=== PATIENT | male | born 1995 | race American Indian/Alaskan Native ===

== ENCOUNTER 2018-10-27 12:14 | Emergency (ER) | payer OTHER ==
[2018-10-27] MEDS ORDERED: NACL 0.9% 1000 ML 1,000 ML ONE (12:52)
[2018-10-27] MEDS ORDERED: NACL 0.9% 1000 ML 1,000 ML IV ONE ×2 (13:51→15:21)
--- NOTE | 2018-10-27 13:54 | Emergency Department Report ---
HPI - General Chief Complaint: Dizziness Time Seen by Provider: 10/27/18 13:40 - HPI HPI: Room 24 The patient is a 23-year-old male presenting with chief complaint of dizziness and weakness. Patient states he was performing an obstacle course during try outs when he began to feel weak and experienced whole body cramping. Patient states his symptoms began approximate 7-8 minutes into the obstacle course. Patient also complained of feeling dizzy. Patient denied ever having chest pain or shortness of breath. Patient denies ever losing consciousness. Patient now complains of feeling tired Location: [See above] Duration: [See above] Quality: Dizziness Severity: Moderate Modifying factors: [see above] Context: [see above] Mode of transportation: [not driving] ED Past Medical Hx - Past Medical History Previous Medical History?: No - Surgical History Past Surgical History?: No - Family History Family history: no significant - Social History Smoking Status: Never Smoker Substance Use Type: None (denies illicit drug use), Alcohol (occasional) ED Review of Systems ROS: Stated complaint: DIZZY/HYPOTENSION Other details as noted in HPI Constitutional: weakness Eyes: denies: eye pain ENT: denies: throat pain Respiratory: no symptoms reported Cardiovascular: denies: chest pain Endocrine: no symptoms reported Gastrointestinal: denies: abdominal pain Genitourinary: denies: dysuria Musculoskeletal: myalgia Neurological: other (dizziness) Physical Exam - Physical Exam Vital Signs: Vital Signs 10/27/18 12:38 Temperature 98 F Pulse Rate 92 H Respiratory 16 Rate Blood Pressure 124/67 [Left] O2 Sat by Pulse 88 Oximetry Physical Exam: GENERAL: The patient is well-developed well-nourished male lying on stretcher not appearing to be in acute distress. [] HEENT: Normocephalic. Atraumatic. Extraocular motions are intact. Patient has moist mucous membranes. NECK: Supple. Trachea midline CHEST/LUNGS: Clear to auscultation. There is no respiratory distress noted. HEART/CARDIOVASCULAR: Regular. There is no tachycardia. There is no gallop rub or murmur. ABDOMEN: Abdomen is soft, nontender. Patient has normal bowel sounds. There is no abdominal distention. SKIN: There is no rash. There is no edema. There is no diaphoresis. NEURO: The patient is awake, alert, and oriented. The patient is cooperative. The patient has no focal neurologic deficits. The patient has normal speech. Cranial nerves II through XII grossly intact, no drift MUSCULOSKELETAL: There is no evidence of acute injury. ED Course Vital Signs 10/27/18 12:38 Temperature 98 F Pulse Rate 92 H Respiratory 16 Rate Blood Pressure 124/67 [Left] O2 Sat by Pulse 88 Oximetry ED Medical Decision Making - Lab Data Result diagrams: 10/27/18 13:53 10/27/18 13:53 Laboratory Tests 10/27/18 10/27/18 10/27/18 12:59 13:53 13:53 WBC 13.5 H RBC 4.33 Hgb 14.3 Hct 42.8 MCV 99 H MCH 33 H MCHC 34 RDW 16.6 H Plt Count 193 Add Manual Diff Complete Total Counted 100 Seg Neuts % (Manual) 86.0 H Band Neutrophils % 2.0 Lymphocytes % (Manual) 6.0 L Reactive Lymphs % (Man) 0 Monocytes % (Manual) 4.0 Eosinophils % (Manual) 0 Basophils % (Manual) 0 Metamyelocytes % 2.0 Myelocytes % 0 Promyelocytes % 0 Blast Cells % 0 Nucleated RBC % 1.0 H Seg Neutrophils # Man 11.6 H Band Neutrophils # 0.3 Lymphocytes # (Manual) 0.8 L Abs React Lymphs (Man) 0.0 Monocytes # (Manual) 0.5 Eosinophils # (Manual) 0.0 Basophils # (Manual) 0.0 Metamyelocytes # 0.3 Myelocytes # 0.0 Promyelocytes # 0.0 Blast Cells # 0.0 WBC Morphology Not Reportable Hypersegmented Neuts Not Reportable Hyposegmented Neuts Not Reportable Hypogranular Neuts Not Reportable Smudge Cells Not Reportable Toxic Granulation Not Reportable Toxic Vacuolation Not Reportable Dohle Bodies Not Reportable Pelger-Huet Anomaly Not Reportable Brian Rods Not Reportable Platelet Estimate Consistent w auto Clumped Platelets Not Reportable Plt Clumps, EDTA Not Reportable Large Platelets Rare Giant Platelets Not Reportable Platelet Satelliting Not Reportable Plt Morphology Comment Not Reportable RBC Morphology Not Reportable Dimorphic RBCs Not Reportable Polychromasia Not Reportable Hypochromasia Not Reportable Poikilocytosis Not Reportable Anisocytosis 1+ Microcytosis Not Reportable Macrocytosis Not Reportable Spherocytes Not Reportable Pappenheimer Bodies Not Reportable Sickle Cells Not Reportable Target Cells Not Reportable Tear Drop Cells Rare Ovalocytes Not Reportable Helmet Cells Not Reportable Samson-Middleberg Bodies Not Reportable Longs Rings Not Reportable Hardy Cells Not Reportable Bite Cells Not Reportable Crenated Cell Not Reportable Elliptocytes Not Reportable Acanthocytes (Spur) Not Reportable Rouleaux Not Reportable Hemoglobin C Crystals Not Reportable Schistocytes Not Reportable Malaria parasites Not Reportable Shad Bodies Not Reportable Hem Pathologist Commnt No D-Dimer POC ABG pH POC ABG pCO2 POC ABG pO2 POC ABG HCO3 POC ABG Total CO2 POC ABG O2 Sat POC ABG Base Excess FiO2 Sodium Potassium Chloride Carbon Dioxide Anion Gap BUN Creatinine Estimated GFR BUN/Creatinine Ratio Glucose POC Glucose 71 Calcium Total Bilirubin AST ALT Alkaline Phosphatase Total Creatine Kinase 1043 H CK-MB (CK-2) 19.2 H CK-MB (CK-2) Rel Index 1.8 Troponin T Total Protein Albumin Albumin/Globulin Ratio 10/27/18 10/27/18 10/27/18 13:53 13:53 14:31 WBC RBC Hgb Hct MCV MCH MCHC RDW Plt Count Add Manual Diff Total Counted Seg Neuts % (Manual) Band Neutrophils % Lymphocytes % (Manual) Reactive Lymphs % (Man) Monocytes % (Manual) Eosinophils % (Manual) Basophils % (Manual) Metamyelocytes % Myelocytes % Promyelocytes % Blast Cells % Nucleated RBC % Seg Neutrophils # Man Band Neutrophils # Lymphocytes # (Manual) Abs React Lymphs (Man) Monocytes # (Manual) Eosinophils # (Manual) Basophils # (Manual) Metamyelocytes # Myelocytes # Promyelocytes # Blast Cells # WBC Morphology Hypersegmented Neuts Hyposegmented Neuts Hypogranular Neuts Smudge Cells Toxic Granulation Toxic Vacuolation Dohle Bodies Pelger-Huet Anomaly Brian Rods Platelet Estimate Clumped Platelets Plt Clumps, EDTA Large Platelets Giant Platelets Platelet Satelliting Plt Morphology Comment RBC Morphology Dimorphic RBCs Polychromasia Hypochromasia Poikilocytosis Anisocytosis Microcytosis Macrocytosis Spherocytes Pappenheimer Bodies Sickle Cells Target Cells Tear Drop Cells Ovalocytes Helmet Cells Samson-Middleberg Bodies Longs Rings Enzo Cells Bite Cells Crenated Cell Elliptocytes Acanthocytes (Spur) Rouleaux Hemoglobin C Crystals Schistocytes Malaria parasites Shad Bodies Hem Pathologist Commnt D-Dimer 1614.79 H POC ABG pH 7.290 L POC ABG pCO2 34.9 L POC ABG pO2 81 POC ABG HCO3 16.8 POC ABG Total CO2 18 POC ABG O2 Sat 95 POC ABG Base Excess -10 FiO2 21 Sodium 148 H Potassium 4.9 Chloride 99.9 Carbon Dioxide 18 L Anion Gap 35 BUN 16 Creatinine 1.9 H Estimated GFR 53 BUN/Creatinine Ratio 8 Glucose 140 H POC Glucose Calcium 9.5 Total Bilirubin 1.10 AST 108 H ALT 68 H Alkaline Phosphatase 63 Total Creatine Kinase CK-MB (CK-2) CK-MB (CK-2) Rel Index Troponin T < 0.010 Total Protein 7.6 Albumin 4.5 Albumin/Globulin Ratio 1.5 - EKG Data -: EKG Interpreted by Mt EKG shows normal: sinus rhythm Rate: normal - EKG Data When compared to previous EKG there are: previous EKG unavailable Interpretation: nonspecific ST-T wave inder (T-wave inversion in lead 3) - Medical Decision Making Patient refused CT brain. Patient for VQ scan is ordered secondary to his elevated d-dimer and presentation. - Differential Diagnosis dehydration, rhabdomyolysis, PE Critical care attestation.: If time is entered above; I have spent that time in minutes in the direct care of this critically ill patient, excluding procedure time. ED Disposition Clinical Impression: Acute renal failure, Dizziness, Rhabdomyolysis Disposition: [id number] LEFT AGAINST MED ADVICE Is pt being admited?: No Does the pt Need Aspirin: No Condition: Undetermined Time of Disposition: 17:30 (patient leaving AMA)
[2018-10-27 14:03] LABS: Hematocrit 42.8 % (35.5-45.6); Hemoglobin 14.3 gm/dl (11.8-15.2); Mean Corpuscular HGB Conc 34 % (32-34); Mean Corpuscular Volume 99 fl (84-94); Platelet Count 193 K/mm3 (140-440); Red Blood Count 4.33 M/mm3 (3.65-5.03); Red Cell Distribution Width 16.6 % (13.2-15.2)
[2018-10-27 14:21] LABS: Creatine Kinase MB 19.2 ng/mL (0.0-4.0)
[2018-10-27 14:22] LABS: Alanine Aminotransferase 68 units/L (7-56); Albumin 4.5 g/dL (3.9-5); BUN/Creatinine Ratio 8; Blood Urea Nitrogen 16 mg/dL (9-20); Calcium 9.5 mg/dL (8.4-10.2); Hemolysis Index 34
[2018-10-27 14:40] LABS: Anisocytosis 1+; Band Neutrophils # (Manual) 0.3 K/mm3; Basophils % (Manual) 0 % (0.0-1.8); Eosinophils % (Manual) 0 % (0.0-4.3); Large Platelets Rare; Platelet Estimate Consistent w Auto; Total Cells Counted 100
[2018-10-27 14:41] LABS: Tear Drop Cells Rare
[2018-10-27 16:36] VITALS: BP 139/75
== END 2018-10-27 17:41 | disposition left against medical advice (07) ==
LOC: ED 12:14
DX: M62.82 Rhabdomyolysis (principal); R42 Dizziness and giddiness; N17.9 Acute kidney failure, unspecified
CPT/HCPCS: 36415; 80053; 82550; 82553; 82803; 82962; 84484; 85007; 85025; 85379; 93005; 93010; 96360; 96361; 99284; J7030